=== PATIENT | male | born 1985 | race Two or more races ===

== ENCOUNTER 2016-12-03 09:09 | Emergency (ER) | payer SELFPAY ==
[~2016-12-03] VITALS: Ht 167.6 cm; Wt 74.4 kg
--- NOTE | 2016-12-03 09:30 | Emergency Room Report ---
History of Present Illness General Chief Complaint: Allergic Reaction Source: Patient Present Illness HPI The patient took medicine (Niacin) for the first time today. He was at [employer] and became flushed and felt ill at that time. He felt shortness of breath and palpitations and tingly in his extremities. His face turned red and also his his body. He had a hot flash. This lasted approximately one hour. He had never taken niacin before does pick this up from the [employer] store yesterday. No recent alcohol. The patient denies any fevers, cough, vomiting diarrhea. He feels normal now. Allergies: Coded Allergies: No Known Allergies (Unverified , 12/03/16) Patient History Past Medical History: see triage record Social History: Denies: smoking Social History Narrative works Reviewed Nursing Documentation: PMH: Agreed, PSxH: Agreed Nursing Documentation-PMH Past Medical History: No Stated History Review of Systems All Other Systems: negative except mentioned in HPI Physical Exam Vital Signs Date Time Temp Pulse Resp B/P (MAP) Pulse Ox O2 Delivery O2 Flow Rate FiO2 12/03/16 09:17 97.5 61 20 134/72 99 Room Air General Appearance: well appearing, no apparent distress Head: normocephalic, atraumatic Eyes: bilateral eye normal inspection, bilateral eye PERRL ENT: hearing grossly normal, normal voice, moist mucus membranes Neck: full range of motion, supple Respiratory: no respiratory distress, speaking full sentences Cardiovascular #1: regular rate, rhythm Cardiovascular #2: 2+ radial (L) Gastrointestinal: normal inspection Musculoskeletal: digits/nails normal, gait/station normal, normal range of motion Neurologic: alert, motor strength/tone normal, sensory intact, cerebellar normal, normal gait, grossly normal Psychiatric: mood/affect normal Skin: no rash Medical Decision Making Diagnostic Impression: Primary Impression: Adverse reaction to niacin Qualified Codes: T46.7X5A - Adverse effect of peripheral vasodilators, initial encounter ER Course Before the medication was known, differential included allergic reaction, hyperventilation syndrome, exposure to other histamine like products. When he stated he was taking niacin for the first time, it was clear this was a niacin reaction. As he is improved at this time, no further testing needed. Stable for outpatient observation and treatment. Last Vital Signs Date Time Temp Pulse Resp B/P (MAP) Pulse Ox O2 Delivery O2 Flow Rate FiO2 12/03/16 10:08 97.5 73 20 134/72 99 Room Air Status: improved Disposition: HOME, SELF-CARE Condition: Improved Cas Hamlin M.D. Dec 03, 2016 09:30
[2016-12-03 10:05] VITALS: BP 134/72
[2016-12-03 10:08] VITALS: BP 134/72
== END 2016-12-03 10:10 | disposition home or self-care (01) ==
LOC: EMR 09:37
DX: T46.7X5A Adverse effect of peripheral vasodilators, initial encounter (principal); X58.XXXA Exposure to other specified factors, initial encounter; Y93.9 Activity, unspecified; Y92.9 Unspecified place or not applicable
CPT/HCPCS: 99282